=== PATIENT | male | born 1965 | race Caucasian/White ===

== ENCOUNTER 2018-08-01 08:58 | Outpatient (CLI) | payer OTHER ==
[2018-08-01 09:21] LABS: BASOPHILS # (AUTO) 0.1 10^3/uL (0.0-0.1); BASOPHILS % (AUTO) 0.9 %; EOSINOPHILS # (AUTO) 0.1 10^3/uL (0.0-0.7); EOSINOPHILS % (AUTO) 2.2 %; HGB - HEMOGLOBIN 16.4 g/dL (14.0-18.0); LYMPHOCYTES # (AUTO) 2.3 10^3/uL (1.5-3.5); MEAN CORPUSCULAR HEMOGLOBIN 29.7 pg (27.0-31.0); MEAN CORPUSCULAR HGB CONC 33.6 g/dL (32.0-36.0); MEAN CORPUSCULAR VOLUME 88.2 fL (80.0-94.0); MEAN PLATELET VOLUME 8.8 fL (7.4-11.4); MONOCYTES # (AUTO) 0.3 10^3/uL (0.0-1.0); MONOCYTES % (AUTO) 5.1 %; NEUTROPHILS # (AUTO) 3.5 10^3/uL (1.5-6.6); NEUTROPHILS % (AUTO) 55.8 %; PLT - PLATELET COUNT 152 10^3/uL (130-450); RED BLOOD COUNT 5.52 10^6/uL (4.70-6.10); RED CELL DISTRIBUTION WIDTH 13.3 % (12.0-15.0); WHITE BLOOD COUNT 6.3 x10^3/uL (4.8-10.8)
[2018-08-01 09:42] LABS: ALBUMIN 4.1 g/dL (3.2-5.5); ALBUMIN/GLOBULIN RATIO 1.1 (1.0-2.2); ALKALINE PHOSPHATASE 60 IU/L (42-121); ALT ALANINE AMINOTRANSFERASE 25 IU/L (10-60); AST ASPARTATE AMINOTRANSFERASE 22 IU/L (10-42); BILIRUBIN,TOTAL 0.6 mg/dL (0.2-1.0); BUN - BLOOD UREA NITROGEN 12 mg/dL (6-20); CALCIUM 8.6 mg/dL (8.5-10.3); CARBON DIOXIDE - CO2 23 mmol/L (21-32); CHLORIDE 105 mmol/L (101-111); CHOL/HDL RATIO 4.8 (<5.0); CHOLESTEROL 145 mg/dL; GFR - MDRD 78 (>89); GLUCOSE 119 mg/dL (70-100); HDL CHOLESTEROL 30 mg/dL; LDL CHOLESTEROL,CALCULATED 97 mg/dL; LDL/HDL RATIO 3.2 (<3.6); SODIUM 138 mmol/L (135-145); TOTAL PROTEIN 7.7 g/dL (6.7-8.2); VLDL CHOLESTEROL 18 mg/dL
== END 2018-08-01 08:59 | disposition home or self-care (01) ==
LOC: LAB 08:58
PROVIDERS: ATTEND Internal Medicine Cardiovascular Disease
DX: I10 Essential (primary) hypertension (principal)
CPT/HCPCS: 36415; 80053; 80061; 83721; 85025

== ENCOUNTER 2018-08-14 10:15 | Outpatient (CLI) | payer OTHER ==
--- NOTE | 2018-08-14 18:02 | MRI Report ---
Reason: KNEE JOINT PAIN,RIGHT Procedure Date: 08/14/2018 Accession Number: [id number] / [id number] Procedure: MRI - Knee RT W/O CPT Code: FULL RESULT: EXAM: RIGHT KNEE MRI WITHOUT CONTRAST EXAM DATE: 08/14/2018 11:47 AM. CLINICAL HISTORY: KNEE JOINT PAIN,RIGHT. COMPARISON: KNEE 3 VIEW RT 08/12/2018 10:30 AM. TECHNIQUE: Multiplanar, multisequence T1-weighted and fluid-sensitive sequences of the knee without contrast. Other: None. FINDINGS: Cruciate ligaments: The posterior cruciate and appears intact. There is thickening and increased intrasubstance signal involving the anterior cruciate ligament. Lobulated cyst formation adjacent to the upper fibers of the anterior and posterior cruciate ligaments. Medial meniscus: There is severe blunting and truncation of the posterior horn of the medial meniscus with a partial-thickness radial tear at the body posterior horn junction. This could relate to previous tear with partial resection of the meniscus. In the absence of surgical history this is consistent with meniscus tear and degeneration. Lateral meniscus: Prominent intrasubstance degeneration at the root of the anterior horn with tiny incomplete vertical tear. Otherwise intact. Collateral ligaments: The medial and fibular collateral ligaments appear intact. Bones and articular surfaces: Small popliteal cyst. Mild cartilage thinning and surface irregularity in the medial greater than patellofemoral compartments. Small tricompartmental marginal osteophytes. Extensor mechanism: The patellar tendon and quadriceps insertion appear intact. IMPRESSION: 1. Severe deficiency at the posterior horn medial meniscus. This could represent previous partial resection of the meniscus. In the absence of surgical history consistent with previous tear and degeneration. 2. Small incomplete radial tear at the body posterior horn junction of the medial meniscus. 3. 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 4. Pronounced mucoid degeneration involving the anterior cruciate ligament. RADIA
== END 2018-08-14 10:16 | disposition home or self-care (01) ==
LOC: DI 10:15
PROVIDERS: ATTEND Orthopaedic Surgery Sports Medicine
DX: S83.241A Other tear of medial meniscus, current injury, right knee, initial encounter (principal); M17.11 Unilateral primary osteoarthritis, right knee; M23.8X1 Other internal derangements of right knee

== ENCOUNTER 2019-02-09 16:22 | Observation (INO) | payer MEDICARE, OTHER ==
--- NOTE | 2019-02-09 16:54 | XRAY Report ---
Reason: CHEST PAIN Procedure Date: 02/09/2019 Accession Number: [id number] / [id number] Procedure: XR - Chest 2 View X-Ray CPT Code: 63803 Final Report FULL RESULT: EXAM: CHEST RADIOGRAPHY EXAM DATE: 02/09/2019 04:44 PM. CLINICAL HISTORY: CHEST PAIN. COMPARISON: None. TECHNIQUE: 2 views. FINDINGS: Lungs/Pleura: No focal opacities evident. No pleural effusion. No pneumothorax. Normal volumes. Mediastinum: Previous median sternotomy noted. Heart size is normal. Trachea is midline. Other: None. IMPRESSION: Negative for an acute cardiopulmonary abnormality. RADIA
--- NOTE | 2019-02-09 17:13 | ED Physician Documentation ---
History of Present Illness - Stated complaint Stated Complaint: CP, BACK PRESSURE - Chief complaint Chief Complaint: Cardiac - Additonal information Additional information: This is a 53-year-old male with a history of coronary artery disease with a CABG x4 done in [facility] in 2010, PCI around 2013, Who presents with chest and back pain. He woke this morning with some left-sided chest discomfort and some mild shortness of breath. He then was working in his car and around 10 AM this change in the wellness car he began having increasing pain and some lightheadedness as well as nausea. The pain radiated somewhat towards his back which is similar to symptoms he had when he got his CABG done in 2010 he was found to have a 90% stenosis of multiple vessels. He took 81 mg of aspirin this morning, but no nitroglycerin. He currently states his discomfort is a 5 out of 10, located over the left side of his chest and radiating somewhat towards his back. It is pressure-like. He had a nuclear stress test about a year ago which reportedly was reassuring. Review of Systems Constitutional: denies: Fever Cardiac: reports: Chest pain / pressure Respiratory: reports: Dyspnea GI: denies: Abdominal Pain, Vomiting : denies: Dysuria Skin: denies: Rash PD PAST MEDICAL HISTORY - Past Medical History Cardiovascular: Coronary artery disease - Past Surgical History Cardiovascular: CABG, Coronary stent - Present Medications Home Medications: Ambulatory Orders Medication Instructions Recorded Confirmed Aspirin [Aspirin EC] 81 mg PO DAILY 02/09/19 02/09/19 Atorvastatin [Lipitor] 40 mg PO QPM 02/09/19 02/09/19 Metoprolol Tartrate 50 mg PO BID 02/09/19 02/09/19 - Allergies Allergies/Adverse Reactions: Allergies Allergy/AdvReac Type Severity Reaction Status Date / Time No Known Drug Allergies Allergy Verified 02/09/19 16:25 - Living Situation Living Situation: reports: With family Living Arrangement: reports: At home PD ED PE NORMAL - Vitals Vital signs reviewed: Yes - General General: Alert and oriented X 3, No acute distress - HEENT HEENT: PERRL - Neck Neck: Supple, no meningeal sign - Cardiac Cardiac: RRR, No murmur - Respiratory Respiratory: Clear bilaterally - Abdomen Abdomen: Normal bowel sounds, Soft, Non tender, Non distended - Derm Derm: Warm and dry - Extremities Extremities: No deformity - Neuro Neuro: Alert and oriented X 3 - Psych Psych: Normal mood, Normal affect Results - Vitals Vitals: Vital Signs - 24 hr 02/09/19 02/09/19 02/09/19 16:25 17:11 17:15 Temperature 37.3 C 37.1 C Heart Rate 74 66 65 Respiratory 18 20 12 Rate Blood Pressure 145/88 H 153/98 H 160/91 H O2 Saturation 97 97 96 02/09/19 02/09/19 02/09/19 17:38 17:40 17:44 Temperature Heart Rate 66 69 76 Respiratory 18 14 10 L Rate Blood Pressure 139/90 H 154/85 H 149/92 H O2 Saturation 100 97 97 02/09/19 02/09/19 02/09/19 17:48 18:21 18:30 Temperature Heart Rate 77 56 L 58 L Respiratory 12 20 9 L Rate Blood Pressure 141/80 H 134/88 H 126/76 O2 Saturation 97 99 97 Oxygen O2 Source Room air - EKG (time done) 16:33 Other comments: Other comments (Rate 66, rhythm sinus, there is no ST segment inversions. There is some T wave flattening in aVL L. Intervals within normal limits.) - Labs Labs: Laboratory Tests 02/09/19 02/09/19 02/09/19 17:20 17:20 17:20 WBC 8.4 RBC 5.25 Hgb 15.9 Hct 46.9 MCV 89.3 MCH 30.3 MCHC 33.9 RDW 12.2 Plt Count 194 MPV 10.5 Neut # (Auto) 5.7 Lymph # (Auto) 2.0 Ada # (Auto) 0.5 Eos # (Auto) 0.1 Baso # (Auto) 0.1 Absolute Nucleated RBC 0.00 Nucleated RBC % 0.0 Sodium 138 Potassium 3.8 Chloride 101 Carbon Dioxide 27 Anion Gap 10.0 BUN 7 Creatinine 1.0 Estimated GFR (MDRD) 78 L Glucose 118 H Calcium 10.1 Total Bilirubin 0.4 AST 25 ALT 33 Alkaline Phosphatase 51 Troponin I High Sens 2.8 Total Protein 7.9 Albumin 4.3 Globulin 3.6 Albumin/Globulin Ratio 1.2 Lipase 42 - Rads (name of study) CXR Radiology: Other (No acute cardiopulmonary abnormality) PD MEDICAL DECISION MAKING - ED course Complexity details: considered differential (ACS, angina, dysrhythmia, pneumothorax, pleural effusion, pneumonia) ED course: On evaluation patient is well-appearing, EKG shows no acute disease signs of ischemia or dysrhythmia, chest x-ray is unremarkable. Labs are unrevealing, and his first high-sensitivity troponin is negative. Dissection is unlikely given description of his pain and his blood pressure. He also has no history of pulmonary embolism, and the nature of his pain, his normal oxygen saturation and pulse make this unlikely. I am most concerned for ACS and he is a fairly high risk for major adverse cardiac event given this feels similar to his past SC. I gave him nitroglycerin and he had great improvement, he was also given 325 mg of aspirin. He was admitted to the hospital for further evaluation and ACS rule out. He is in agreement with this plan and is feeling well at the time of admission. Departure - Departure Disposition: ED Place in Observation Clinical Impression: Chest pain Qualifiers: Chest pain type: unspecified Qualified Code(s): R07.9 - Chest pain, unspecified Condition: Good Discharge Date/Time: 02/09/19 19:49
[2019-02-09] MEDS: NITROGLYCERIN SL 0.4 MG TABLET SL STA ×2 (17:40→17:45)
[2019-02-09 17:55] LABS: BASOPHILS # (AUTO) 0.1 10^3/uL (0.0-0.1); BASOPHILS % (AUTO) 0.6 %; EOSINOPHILS # (AUTO) 0.1 10^3/uL (0.0-0.7); EOSINOPHILS % (AUTO) 0.9 %; HGB - HEMOGLOBIN 15.9 g/dL (14.0-18.0); LYMPHOCYTES % (AUTO) 24.1 %; MEAN CORPUSCULAR HEMOGLOBIN 30.3 pg (27.0-31.0); MEAN CORPUSCULAR HGB CONC 33.9 g/dL (32.0-36.0); MEAN CORPUSCULAR VOLUME 89.3 fL (80.0-94.0); MEAN PLATELET VOLUME 10.5 fL (7.4-11.4); MONOCYTES # (AUTO) 0.5 10^3/uL (0.0-1.0); NEUTROPHILS # (AUTO) 5.7 10^3/uL (1.5-6.6); NEUTROPHILS % (AUTO) 68.2 %; PLT - PLATELET COUNT 194 10^3/uL (130-450); RED BLOOD COUNT 5.25 10^6/uL (4.70-6.10); RED CELL DISTRIBUTION WIDTH 12.2 % (12.0-15.0); WHITE BLOOD COUNT 8.4 x10^3/uL (4.8-10.8)
[2019-02-09 18:06] LABS: ALBUMIN 4.3 g/dL (3.2-5.5); ALBUMIN/GLOBULIN RATIO 1.2 (1.0-2.2); BILIRUBIN,TOTAL 0.4 mg/dL (0.2-1.0); CALCIUM 10.1 mg/dL (8.5-10.3); TOTAL PROTEIN 7.9 g/dL (6.7-8.2)
[2019-02-09] MEDS ORDERED: oxyCODONE 5 MG TABLET PO PRN (18:52)
[2019-02-09] MEDS ORDERED: SODIUM CHLORIDE FLUSH 0.9% 10 ML SYRINGE IVP PRN (18:52)
[2019-02-09] MEDS ORDERED: ACETAMINOPHEN 325 MG TABLET PO PRN (18:52)
[2019-02-09] MEDS ORDERED: ONDANSETRON ODT 4 MG TABLET TL PRN (18:52)
[2019-02-09] MEDS ORDERED: ONDANSETRON 4 MG/2 ML VIAL IVP PRN (18:52)
[2019-02-09] MEDS ORDERED: ASPIRIN CHEW 81 MG TABLET PO STA (18:53)
[2019-02-09] MEDS ORDERED: MORPHINE 2 MG/ML CARPUJECT IVP PRN (18:56)
--- NOTE | 2019-02-09 19:25 | HISTORY & PHYSICAL EXAMINATION ---
Chief Complaint - Chief Complaint Chief Complaint: Chest pain History of Present Illness - Admitted From Admitted From:: Home - History Obtained From Records Reviewed: Yes History obtained from: Patient, EMR - History of Present Illness HPI Comment/Other: This is a 53 year old male with a past medical history significant for coronary artery disease s/p CABGx4 in 2010 and PCI in 2013, hypertension, and hyperlipidemia who presents today complaining of chest pain that radiates to his back. He reports the pain began while he was working on his vehicle. The pain is pressure like in nature and radiated to his back. He had associated nausea and flushing. No vomiting. The pain did not radiate to his neck or arms. He felt dizzy and lightheaded when the pain began. He went inside his home to rest but this did not alleviate the pressure. He also complained of dyspnea on exertion which was new. He states the pain was very similar to when he had his CABG in 2010 and PCI in 2013. His pain was relieved in the emergency department after taking Nitroglycerin. He states he had a stress test prior to moving to [facility] 1.5 years ago in preparation for spine surgery. From what he recalls, it was fine. He has not had chest pain since his PCI until today. He does taking Aspirin 81mg daily, Metoprolol 50mg BID, and Lipitor 40mg daily. He did see a hospital cook here at the [facility] but has not had any further cardiac testing. His previous hospital cook was Dr. Suggs in [place], [place]. He reports no cough, dyspnea at rest, abdominal pain, fevers, chills. He does not currently smoke. He is normally quite active and has been able to function greater than 4 MET's without chest pain. In the emergency department, he was found to be afebrile, heart rate in the 70's, hypertensive with systolic in the 140's, not tachypnic and saturating 97% on room air. His labs were unremarkable including a negative troponin. His chest x-ray was also unremarkable. EKG revealed . Given his history of coronary artery disease and presenting symptoms, medicine was consulted for admission to rule out ACS. I did discuss goals of care with the patient and he would like to be a full code. History - Past Medical History Cardiovascular: reports: Coronary artery disease Respiratory: reports: None Neuro: reports: Head injury Endocrine/Autoimmune: reports: None GI: reports: None : reports: None Psych: reports: None Musculoskeletal: reports: Chronic back pain Derm: reports: None MRSA Hx?: No - Past Surgical History Ortho: reports: Spine surgery Cardiovascular: reports: CABG, Coronary stent - Family & Social History Family History Comment/Other: Both his mother and father had CAD. His mother had CABGx3 and father had CABGx4. Living arrangement: At home Living Situation: With family Social History Notes: He previously lived in [place], [place] but moved to [facility] 1.5 years ago to be closer to his father who lives in [place]. He lives with his and son. 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 He smoked cigarettes and chewed tobacco in high school but has not smoked since that time. He drinks alcohol socially. - Substance History Use: Uses substance without health or social issues: NONE - POLST Patient has POLST: No Meds/Allgy - Home Medications Home Medications: Ambulatory Orders Medication Instructions Recorded Confirmed Aspirin [Aspirin EC] 81 mg PO DAILY 02/09/19 02/09/19 Atorvastatin [Lipitor] 40 mg PO QPM 02/09/19 02/09/19 Metoprolol Tartrate 50 mg PO BID 02/09/19 02/09/19 - Allergies Allergies/Adverse Reactions: Allergies Allergy/AdvReac Type Severity Reaction Status Date / Time No Known Drug Allergies Allergy Verified 02/09/19 16:25 Review of Systems - Constitutional Constitutional: denies: Fatigue, Fever, Chills, Weakness - Cardiovascular Cariovascular: reports: Chest pain, Lightheadedness, Exertional dyspnea, Decr. exercise tolerance. denies: Palpitations, Edema - Respiratory Respiratory: reports: SOB with exertion. denies: Cough, SOB at rest - Gastrointestinal Gastrointestinal: reports: Nausea. denies: Abdominal pain, Vomiting - Genitourinary Genitourinary: denies: Dysuria, Frequency, Urgency - Musculoskeletal Musculoskeletal: denies: Muscle weakness - Integumentary Integumentary: denies: Rash - Neurological Neurological: reports: Dizziness. denies: General weakness, Focal weakness, Numbness - All Other Systems All Other Systems: reports: Reviewed and negative Prior Level of Functionality: He is independent with his ADL's. Exam - Vital Signs Reviewed Vital Signs: Yes Vital Signs: Vital Signs x48h Temp Pulse Resp BP Pulse Ox 02/09/19 19:02 63 21 125/77 97 02/09/19 18:58 78 13 125/77 97 02/09/19 18:30 58 L 9 L 126/76 97 02/09/19 18:21 56 L 20 134/88 H 99 02/09/19 17:48 77 12 141/80 H 97 02/09/19 17:44 76 10 L 149/92 H 97 02/09/19 17:40 69 14 154/85 H 97 02/09/19 17:38 66 18 139/90 H 100 02/09/19 17:15 37.1 C 65 12 160/91 H 96 02/09/19 17:11 66 20 153/98 H 97 02/09/19 16:25 37.3 C 74 18 145/88 H 97 - Physical Exam General Appearance: positive: No acute distress, Alert Eyes Bilateral: positive: Normal inspection ENT: positive: ENT inspection nml Neck: positive: Nml inspection Respiratory: positive: No respiratory distress. negative: Wheezes, Rales, Rhonchi Cardiovascular: positive: Regular rate & rhythm, No murmur. negative: Tachycardia, Bradycardia, Systolic murmur, Diastolic murmur Abdomen: positive: Non-tender, No distention. negative: Tenderness, Guarding, Rebound Skin: positive: No rash, Warm, Dry Extremities: positive: Full ROM, No pedal edema Neurologic/Psychiatric: positive: Oriented x3, Motor nml. negative: Disoriented to person, Disoriented to place, Disoriented to time Conclusion/Plan - Problem List (1) Chest pain Conclusion/Plan: His presentation is concerning for ischemia given his history of coronary artery disease. Fortunately, his EKG is not suggestive of ischemia although we do not have a prior EKG to compare to. His initial troponin is negative as well. He received Aspirin in the emergency department. Will trend his troponin and obtain a nuclear stress test in the morning. Will continue his home medications and monitor on telemetry. Nitroglycerin PRN. Qualifiers: Chest pain type: unspecified Qualified Code(s): R07.9 - Chest pain, unspecified (2) Coronary artery disease Conclusion/Plan: He has known coronary artery disease and had a CABGx4 in 2010 followed by PCI in 2013. Both of these procedures were performed in [place]. His previous Search Engine Optimization Analyst was Dr. Suggs in [place], [place] and he now follows with Dr. Montiel here at the [facility]. Will continue his home medications and obtain a nuclear stress test in the morning. Qualifiers: Coronary Disease-Associated Artery/Lesion type: bypass graft Craig vs. transplanted heart: nulato heart (3) Hypertension Conclusion/Plan: His blood pressure is currently well controlled on Metoprolol. Continue home dose. Will add Lisinopril if he becomes hypertensive. Qualifiers: Hypertension type: essential hypertension Qualified Code(s): I10 - Essential (primary) hypertension (4) Hyperlipidemia Conclusion/Plan: Stable. Continue Lipitor. - Lab Results Lab results reviewed: Yes Fish Bones: 02/09/19 17:20 02/10/19 05:43 - Diagnostic Imaging Results Diagnostic Imaging Results: positive: Final report reviewed - EKG Results EKG Interpreted Independently: Yes EKG Comparison: No prior EKG EKG Findings: Sinus rhythm without evidence of ischemia. Core Measures - Anticipated LOS I expect patient to be DC'd or transferred within 96 hours.: Yes - Issues Hospital Issues and Management Plan: Admitted for ACS rule out given his chest pain and history of CAD. Will trend troponin and obtain nuclear stress test in AM. - DVT/VTE - Prophylaxis VTE/DVT Device ordered at admit?: Yes VTE/DVT Prophylaxis med ordered at admit?: Yes
[2019-02-09] MEDS ORDERED: NITROGLYCERIN SL 0.4 MG TABLET SL PRN (19:31)
[2019-02-09] MEDS ORDERED: ATORVASTATIN 40 MG TABLET PO SCH (21:00)
[2019-02-09] MEDS: METOPROLOL TARTRATE 50 MG TABLET PO SCH (21:07)
[2019-02-10] MEDS: SODIUM CHLORIDE FLUSH 0.9% 10 ML SYRINGE IVP SCH ×2 (00:31→10:18)
[2019-02-10 06:00] LABS: CALCIUM 8.8 mg/dL (8.5-10.3)
[2019-02-10] MEDS ORDERED: ASPIRIN CHEW 81 MG TABLET PO SCH (09:00)
[2019-02-10] MEDS: METOPROLOL TARTRATE 50 MG TABLET PO SCH (10:16)
[2019-02-10] MEDS ORDERED: REGADENOSON 0.4 MG/5 ML SYRINGE IVP ONE ×2 (10:42→13:45)
[2019-02-10] MEDS ORDERED: AMINOPHYLLINE 250 MG/10 ML VIAL ONE (10:43)
--- NOTE | 2019-02-10 15:08 | CARDIAC PROCEDURE NOTE ---
DATE OF SERVICE: 02/10/2019 Physician: Daniela Monsalve MD INDICATION: Chest pain. CARDIAC RISK FACTORS: Male gender, hyperlipidemia, hypertension, family history of early heart disease. The patient has known CAD with prior CABG and stents. DESCRIPTION OF PROCEDURE: After signing informed consent, the patient underwent a Lexiscan pharmaceutical stress test with nuclear myocardial perfusion imaging. Resting heart rate: 65. Peak heart rate: 90. Resting blood pressure: 155/88. Peak blood pressure: 172/108. Lexiscan was infused per protocol. The patient had brief flushing and shortness of breath, he had no chest pain or other symptoms. RESTING ELECTROCARDIOGRAM: Normal sinus rhythm, vertical axis, otherwise within normal limits. ELECTROCARDIOGRAM AT PEAK: No new ST segment or T-wave abnormalities. SUMMARY 1. No symptoms occurred with pharmaceutical stress testing. 2. Normal resting electrocardiogram, except for vertical axis. 3. No new ischemic changes per EKG criteria were seen with this pharmaceutical stress. 4. Nuclear images reported separately. cc: MD Rayne Luna MD TD: 02/10/2019 14:41 MTDD
--- NOTE | 2019-02-10 15:27 | Nuclear Medicine Report ---
Reason: Chest pain. History of CAD s/p CABG x4 and PCI. Procedure Date: 02/10/2019 Accession Number: [id number] / [id number] Procedure: NM - Myocardial Perfusion STR/RST CPT Code: Addended Final Report FULL RESULT: EXAM: SINGLE-ISOTOPE PHARMACOLOGICAL STRESS TEST WITH REGADENOSON. SINGLE-ISOTOPE AND TWO-DAY REST/STRESS MYOCARDIAL PERFUSION SCANS WITH TOMOGRAPHIC IMAGING, QUANTITATIVE ANALYSIS, WALL MOTION ANALYSIS AND CALCULATION OF EJECTION FRACTION. EXAM DATE: 02/10/2019 01:48 PM. CLINICAL HISTORY: Chest pain. History of CAD status post coronary artery bypass grafting x4 and percutaneous coronary intervention. COMPARISON: None available. TECHNIQUE: A pharmacological stress was performed with the infusion of 0.4 mg regadenoson per protocol. According to protocol, 9.2 mCi of Tc-99m sestamibi was injected for stress myocardial perfusion scan. Motion correction was applied when appropriate. The following day after the intravenous administration of 40.2 mCi of Tc-99m sestamibi, a rest myocardial perfusion scan was done with tomography. Motion correction was applied when appropriate. Gated tomographic images were obtained for wall motion analysis and computation of left ventricular ejection fraction. FINDINGS: On visual analysis, there are mild fixed defects in the apex and distal anterior wall. No convincing significant reversible perfusion defects. Computer analysis. Summed stress score 6. Summed rest score 3. Summed difference score 3. Wall motion analysis demonstrates septal hypokinesis. The left ventricular end-diastolic volume is 102 cc. The left ventricular end-systolic volume is 33 cc. The left ventricular ejection fraction is calculated to be 67%. IMPRESSION: 1. On visual analysis, mild fixed defects in the apex and distal anterior wall. No convincing reversible perfusion defects. 2. Left ventricular ejection fraction of 67%. 3. Septal hypokinesis. 4. Normal left ventricular cavity size, no change with stress. 5. Based on computer analysis, mildly abnormal study with mild ischemia. Please correlate findings with stress ECG tracings and procedure notes. RADIA ADDENDUM: 02/11/19 09:32 There is a discrepancy between the computer analysis and visual analysis. On visual analysis, the computer detected reversibility in the distal anterior and distal lateral [place] is not appreciated. Findings were discussed by telephone with Dr. Monsalve at 0930 and 02/11/2019.
--- NOTE | 2019-02-10 15:33 | Discharge Plan ---
Discharge Plan Problem Reviewed?: Yes Disposition: Home, Self Care Condition: Stable Prescriptions: Nitroglycerin [Nitrostat] 0.4 mg SL Q5MIN PRN #100 tablet PRN Reason: Chest Pain Diet: Cardiac Activity Restrictions: Activity as Tolerated Shower Restrictions: No Driving Restrictions: No Instruction Topics: Angina, Nitroglycerin Fast Acting Health Concerns: You were here to evaluate chest pain, labs showed no heart attack and a stress test was relatively stable. Plan of Treatment: Resume your pre-hospital medications. A new prescription fo Nitro, to use under the tongue, was ordere for you. See Dr Montiel at the clinic for follow-up soon. Care Goals: Stabilization Assessment: The patient understands. No Smoking: If you smoke, Please STOP! Call for help. Follow-up with: Rayne Wilson MD [Primary Care Provider] -
--- NOTE | 2019-02-10 15:38 | DISCHARGE SUMMARY ---
"Discharge Summary Admit Date: 02/09/19 Discharge Date: 02/10/19 Discharging Provider: Dr Daniela Monsalve Primary Care Provider: Dr Michelle Whyte Condition at Discharge: Stable Discharge Disposition: 01 Home, Self Care - DIAGNOSES Admission Diagnoses: 1) Chest pain 2) Hx of CAD with CABG and coronary stents 3) HTN 4) Hyperlipidemia Hx Discharge Diagnoses with Status of Each Condition: See below - HPI History of Present Illness: From the admission H&P of Dr Aidan Corbin: This is a 53 year old male with a past medical history significant for coronary artery disease s/p CABGx4 in 2010 and PCI in 2013, hypertension, and hyperlipidemia who presents today complaining of chest pain that radiates to his back. He reports the pain began while he was working on his vehicle. The pain is pressure like in nature and radiated to his back. He had associated nausea and flushing. No vomiting. The pain did not radiate to his neck or arms. He felt dizzy and lightheaded when the pain began. He went inside his home to rest but this did not alleviate the pressure. He also complained of dyspnea on exertion which was new. He states the pain was very similar to when he had his CABG in 2010 and PCI in 2013. His pain was relieved in the emergency department after taking Nitroglycerin. He states he had a stress test prior to moving to [facility] 1.5 years ago in preparation for spine surgery. From what he recalls, it was fine. He has not had chest pain since his PCI until today. He does taking Aspirin 81mg daily, Metoprolol 50mg BID, and Lipitor 40mg daily. He did see a sample grinder here at the [facility] but has not had any further cardiac testing. His previous sample grinder was Dr. Suggs in [place], [place]. He reports no cough, dyspnea at rest, abdominal pain, fevers, chills. He does not currently smoke. He is normally quite active and has been able to function greater than 4 MET's without chest pain. In the emergency department, he was found to be afebrile, heart rate in the 70's, hypertensive with systolic in the 140's, not tachypnic and saturating 97% on room air. His labs were unremarkable including a negative troponin. His chest x-ray was also unremarkable. EKG revealed . Given his history of coronary artery disease and presenting symptoms, medicine was consulted for admission to rule out ACS. - CONSULTS | PROCEDURES Procedures: Lexiscan pharmaceutical stress test with nuclear myocardial perfusion imaging - HOSPITAL COURSE Hospital Course: 1) Chest pain There were no more episodes of chest pain while here. His hs-troponins were 2.8, 2.6 and < 2.3, ruling him out for an NJ. He underwent a pharmaceutical stress test the following morning (he requested not to walk on a treadmill because of arthritis). He had no CP with Lexiscan infusion and the EKG developed no ischemic changes. The nuclear scan portions were read as having septal hypokinesis and spotty fixed abnormalities of the divina-septum, but no rever sible changes to suggest ischemia. When asked if he had had an NJ in his past, he said he did not know. We had no cardiac records from [place] to review. The patient was educated about using sl NTG for angina and a fresh prescription was ordered. He was advised to establish with a sample grinder locally. 2) Hx of CAD with CABG and coronary stents He was kept on his statin, Aspirin and Metoprolol while here. 3) HTN BP was controlled on current meds. 4) Hyperlipidemia Hx He was kept on his present statin dose. - ALLERGIES Allergies/Adverse Reactions: Allergies Allergy/AdvReac Type Severity Reaction Status Date / Time No Known Drug Allergies Allergy Verified 02/09/19 16:25 - MEDICATIONS Home Medications: Ambulatory Orders Medication Instructions Recorded Confirmed Aspirin [Aspirin EC] 81 mg PO DAILY 02/09/19 02/09/19 Atorvastatin [Lipitor] 40 mg PO QPM 02/09/19 02/09/19 Metoprolol Tartrate 50 mg PO BID 02/09/19 02/09/19 Nitroglycerin [Nitrostat] 0.4 mg SL Q5MIN PRN #100 tablet 02/10/19 - PHYSICAL EXAM AT DISCHARGE General Appearance: positive: No acute distress, Alert Eyes Bilateral: positive: Normal inspection ENT: positive: ENT inspection nml Neck: positive: Nml inspection Respiratory: positive: No respiratory distress Cardiovascular: positive: Regular rate & rhythm Abdomen: positive: Non-tender, No distention Skin: positive: Color nml Extremities: positive: No pedal edema Neurologic/Psychiatric: positive: Oriented x3, Other (Non-focal) - LABS Result Diagrams: 02/09/19 17:20 02/10/19 05:43 - DIAGNOSTIC IMAGING Diagnostic Imaging Results: Final report reviewed, Discussed with radiologist - FOLLOW UP Follow Up: See PCP and Photocopying Equipment Mechanic for hospital follow-up - TIME SPENT Time Spent in Discharge (Minutes): 35"
[2019-02-10 16:28] VITALS: BP 147/89
== END 2019-02-10 16:25 | disposition home or self-care (01) ==
LOC: ED 16:22 → MS2 18:53
PROVIDERS: ADMIT Specialist; ATTEND Internal Medicine
DX: I25.709 Atherosclerosis of coronary artery bypass graft(s), unspecified, with unspecified angina pectoris (principal); I10 Essential (primary) hypertension; E78.5 Hyperlipidemia, unspecified; G89.29 Other chronic pain; M54.9 Dorsalgia, unspecified; Z79.82 Long term (current) use of aspirin; Z95.1 Presence of aortocoronary bypass graft; Z95.5 Presence of coronary angioplasty implant and graft; Z82.49 Family history of ischemic heart disease and other diseases of the circulatory system; Z87.891 Personal history of nicotine dependence
CPT/HCPCS: 36415; 71046; 78452; 80048; 80053; 83690; 84484; 85025; 93005; 93017; 96374; 99284; 99285; A9270; A9500; G0378; J2785

== ENCOUNTER 2019-03-17 07:06 | Day surgery (SDC) | payer MEDICARE ==
[~2019-03-17 07:06] MED LIST: SODIUM/POTASSIUM/MAG SULFATES 354 ML PREP KIT PO SCH
[2019-03-17] MEDS ORDERED: LACTATED RINGERS 1,000 ML IV ONE (07:12)
[2019-03-17] MEDS ORDERED: fentaNYL 250 MCG/5 ML VIAL IVP ONE (08:23)
[2019-03-17] MEDS ORDERED: MIDAZOLAM 2 MG/2 ML VIAL IVP ONE (08:23)
[2019-03-17] MEDS ORDERED: GLUCAGON 1 MG/ML VIAL ONE (09:13)
[2019-03-17 09:18] VITALS: BP 133/98
== END 2019-03-17 07:07 | disposition home or self-care (01) ==
LOC: SDS 07:06
PROVIDERS: ATTEND Surgery
PROC: 0DBN8ZZ Excision of Sigmoid Colon, Via Natural or Artificial Opening Endoscopic (ICD-10-PCS; principal; 2019-03-17 08:30)
DX: K63.5 Polyp of colon (principal); K62.5 Hemorrhage of anus and rectum; K59.09 Other constipation; K21.9 Gastro-esophageal reflux disease without esophagitis; I10 Essential (primary) hypertension; I25.10 Atherosclerotic heart disease of native coronary artery without angina pectoris; F32.9 Major depressive disorder, single episode, unspecified; F41.9 Anxiety disorder, unspecified; Z95.1 Presence of aortocoronary bypass graft; Z79.82 Long term (current) use of aspirin; Z79.1 Long term (current) use of non-steroidal anti-inflammatories (NSAID); Z95.5 Presence of coronary angioplasty implant and graft; Z98.1 Arthrodesis status
CPT/HCPCS: 45380; A9270; J3010; J7120

== ENCOUNTER 2022-02-23 02:30 | Emergency (ER) | payer MEDICARE ==
[2022-02-23] MEDS ORDERED: SODIUM CHLORIDE 0.9% 1,000 ML IV STA (02:47)
[2022-02-23] MEDS ORDERED: KETOROLAC 15 MG/ML VIAL IVP STA (02:47)
--- NOTE | 2022-02-23 02:49 | ED Physician Documentation ---
History of Present Illness - Stated complaint Stated Complaint: BLEEDING FROM PENIS - Chief complaint Chief Complaint: Abd Pain - History obtained from History obtained from: Patient, Family () - Additonal information Additional information: 56yM with pmh hld, cad s/p coronary bypass p/w LLQ pain intermittent over past few days, sharp, currently /, nonradiating a/w occasional dysuria. tonight he urinated in the bathroom then left the bathroom, felt like he was peeing again and then looked at his underwear and saw blood. no prior hx uti or stones. denies fevers. denies abdominal surgeries. Review of Systems Ten Systems: 10 systems reviewed and negative Constitutional: denies: Fever Cardiac: denies: Chest pain / pressure Respiratory: denies: Dyspnea, Cough GI: reports: Abdominal Pain. denies: Nausea, Diarrhea : reports: Dysuria, Hematuria Musculoskeletal: denies: Back pain PD PAST MEDICAL HISTORY - Past Medical History Cardiovascular: Hypertension, High cholesterol, Coronary artery disease, Other Respiratory: None Neuro: Head injury Endocrine/Autoimmune: None GI: None : None HEENT: None Psych: Anxiety Musculoskeletal: Chronic back pain Derm: None - Past Surgical History Past Surgical History: Yes General: Colonoscopy Ortho: Spine surgery, Other Cardiovascular: CABG, Coronary stent - Present Medications Home Medications: Ambulatory Orders Medication Instructions Recorded Confirmed Aspirin [Aspirin EC] 81 mg PO DAILY 02/09/19 02/23/22 Atorvastatin [Lipitor] 40 mg PO QPM 02/09/19 02/23/22 Nitroglycerin [Nitrostat] 0.4 mg SL Q5MIN PRN #100 tablet 02/10/19 02/23/22 Carvedilol [Coreg] 6.25 mg PO BID 03/17/19 02/23/22 - Allergies Allergies/Adverse Reactions: Allergies Allergy/AdvReac Type Severity Reaction Status Date / Time No Known Drug Allergies Allergy Verified 02/09/19 16:25 - Social History Does the pt smoke?: No Smoking Status: Never smoker Does the pt drink ETOH?: Yes Does the pt have substance abuse?: Yes - Immunizations Immunizations are current?: Yes - POLST Patient has POLST: No PD ED PE NORMAL - Vitals Vital signs reviewed: Yes - General General: Alert and oriented X 3, No acute distress, Well developed/nourished - HEENT HEENT: Atraumatic, PERRL, EOMI - Neck Neck: Supple, no meningeal sign - Cardiac Cardiac: RRR - Respiratory Respiratory: No respiratory distress, Clear bilaterally - Abdomen Abdomen: Other (LLQ discomfort to palpation. otherwise ntnd) - Back Back: No CVA TTP - Derm Derm: Normal color - Extremities Extremities: No deformity Results - Vitals Vitals: Vital Signs - 24 hr 02/23/22 02/23/22 02:40 03:16 Temperature 37 C Heart Rate 78 63 Respiratory 16 18 Rate Blood Pressure 139/94 H 138/86 H O2 Saturation 99 98 Oxygen O2 Source Room air - Labs Labs: Laboratory Tests 02/23/22 02/23/22 02/23/22 02:50 02:50 02:50 WBC 9.6 RBC 5.22 Hgb 15.7 Hct 46.9 MCV 89.8 MCH 30.1 MCHC 33.5 RDW 12.2 Plt Count 196 MPV 9.8 Neut # (Auto) 6.1 Lymph # (Auto) 2.5 [place] # (Auto) 0.7 Eos # (Auto) 0.2 Baso # (Auto) 0.1 Absolute Nucleated RBC 0.00 Nucleated RBC % 0.0 Sodium 137 Potassium 4.1 Chloride 101 Carbon Dioxide 26 Anion Gap 10.0 BUN 10 Creatinine 1.0 Estimated GFR (MDRD) 77 L Glucose 113 H Calcium 9.4 Total Bilirubin 0.5 AST 21 ALT 22 Alkaline Phosphatase 53 Total Protein 7.5 Albumin 4.2 Globulin 3.3 Albumin/Globulin Ratio 1.3 Lipase 51 Urine Color YELLOW Urine Clarity CLEAR Urine pH 6.0 Ur Specific [place] <=1.005 Urine Protein NEGATIVE Urine Glucose (UA) NEGATIVE Urine Ketones NEGATIVE Urine Occult Blood TRACE-INTA Urine Nitrite NEGATIVE Urine Bilirubin NEGATIVE Urine Urobilinogen 0.2 (NORMAL) Ur Leukocyte Esterase NEGATIVE Ur Microscopic Review NOT INDICATED Urine Culture Comments NOT INDICATED PD MEDICAL DECISION MAKING - ED course ED course: 56yM p/w LLQ pain, dysuria, hematuria. will obtain ua, labs, ct, treat symptomatically and reevalute. Departure - Departure Disposition: 01 Home, Self Care Clinical Impression: Hematuria Condition: Good Instructions: ED Hematuria Follow-Up: Holly Jacob MD [Physician No Access] - Comments: You were seen in the ED for blood in the urine. Your labwork and CT uncovered no emergent cause for your symptoms but you will need further workup with a urologist. Please follow up with your primary care provider for referral and return to the ED for any new or worsening symptoms or other cocnerns.
[2022-02-23] MEDS ORDERED: iohexoL-300 100 ML VIAL ONE (02:55)
[2022-02-23 02:58] LABS: BASOPHILS # (AUTO) 0.1 10^3/uL (0.0-0.1); BASOPHILS % (AUTO) 0.8 %; EOSINOPHILS # (AUTO) 0.2 10^3/uL (0.0-0.7); HCT - HEMATOCRIT 46.9 % (42.0-52.0); HGB - HEMOGLOBIN 15.7 g/dL (14.0-18.0); LYMPHOCYTES # (AUTO) 2.5 10^3/uL (1.5-3.5); LYMPHOCYTES % (AUTO) 25.6 %; MEAN CORPUSCULAR HEMOGLOBIN 30.1 pg (27.0-31.0); MEAN CORPUSCULAR HGB CONC 33.5 g/dL (32.0-36.0); MEAN CORPUSCULAR VOLUME 89.8 fL (80.0-94.0); MEAN PLATELET VOLUME 9.8 fL (7.4-11.4); MONOCYTES # (AUTO) 0.7 10^3/uL (0.0-1.0); MONOCYTES % (AUTO) 7.7 %; NEUTROPHILS # (AUTO) 6.1 10^3/uL (1.5-6.6); NEUTROPHILS % (AUTO) 63.8 %; PLT - PLATELET COUNT 196 10^3/uL (130-450); RED BLOOD COUNT 5.22 10^6/uL (4.70-6.10); RED CELL DISTRIBUTION WIDTH 12.2 % (12.0-15.0); WHITE BLOOD COUNT 9.6 x10^3/uL (4.8-10.8)
[2022-02-23 03:03] LABS: BILIRUBIN,URINE NEGATIVE (NEGATIVE); CLARITY,URINE CLEAR (CLEAR); GLUCOSE, URINE (UA) NEGATIVE (NEGATIVE); KETONES,URINE (UA) NEGATIVE (NEGATIVE); LEUKOCYTE ESTERASE, URINE NEGATIVE (NEGATIVE); NITRITE,URINE NEGATIVE (NEGATIVE); OCCULT BLOOD,URINE TRACE-INTA (NEGATIVE); PROTEIN,URINE NEGATIVE (NEGATIVE); UROBILINOGEN,URINE 0.2 (NORMAL) E.U./dL (NORMAL)
[2022-02-23 03:13] LABS: ALBUMIN 4.2 g/dL (3.2-5.5); ALBUMIN/GLOBULIN RATIO 1.3 (1.0-2.2); BILIRUBIN,TOTAL 0.5 mg/dL (0.2-1.0); CALCIUM 9.4 mg/dL (8.5-10.3); POTASSIUM 4.1 mmol/L (3.5-5.0); TOTAL PROTEIN 7.5 g/dL (6.7-8.2)
[2022-02-23] MEDS ORDERED: iohexoL-300 100 ML VIAL IVP ONE (03:47)
[2022-02-23 05:24] VITALS: BP 133/61
--- NOTE | 2022-02-23 08:33 | CT Report ---
PROCEDURE: ABDOMEN/PELVIS W INDICATIONS: Abdominal pain, acute, nonlocalized CONTRAST: Omni 300 100ml TECHNIQUE: After the administration of intravenous contrast, 5 mm thick sections acquired from the diaphragms to the symphysis. 5 mm thick coronal and sagittal reformats were acquired. For radiation dose reducti on, the following was used: automated exposure control, adjustment of mA and/or kV according to alex ent size. COMPARISON: None. FINDINGS: Image quality: Excellent. ABDOMEN: Lung bases: Lung bases are clear. Heart size is normal. Small hiatal hernia. Mild concentric thick ening at the gastroesophageal junction. Solid organs: Liver and spleen are normal in size and enhancement. Mild hepatic steatosis. Gallbladd er is normal and contracted. Biliary system is non dilated. Pancreas enhances normally. No adrenal nodules. Kidneys demonstrate normal size and enhancement, without hydronephrosis. Peritoneum and bowel: Bowel loops demonstrate normal wall thickness and caliber. Diverticulosis wit hout diverticulitis. No free fluid or air. Nodes and vessels: No retroperitoneal or mesenteric adenopathy by size criteria. Aorta and inferior vena cava are normal in size. Moderate atherosclerotic calcifications. Miscellaneous: Tiny fat-containing umbilical hernia. PELVIS: Genitourinary: Bladder wall thickness is normal. Miscellaneous: No inguinal hernias or adenopathy. There is a 4.3 x 3.2 x 3.5 cm lipoma in the left anterior thigh. Bones: No suspicious bony lesions. No vertebral body compression fractures. Degenerative and posts urgical changes in lower lumbar spine. There is moderate to severe central canal stenosis at L3-L4. IMPRESSION: 1. No acute abnormality in abdomen pelvis. 2. Diverticulosis without diverticulitis. 3. A 4.3 x 3.2 x 3.5 cm lipoma in the left anterior thigh. No significant discrepancy with the preliminary interpretation. Reviewed by: Kobi Miles MD on 02/23/2022 8:31 AM PST Approved by: Kobi Miles MD on 02/23/2022 8:31 AM PST Station ID: [id number]
== END 2022-02-23 05:23 | disposition home or self-care (01) ==
LOC: ED 02:30
DX: R31.9 Hematuria, unspecified (principal)
CPT/HCPCS: 36415; 74177; 80053; 81003; 83690; 85025; 96361; 96374; 99282; 99284; Q9967; 81001; 87086

== ENCOUNTER 2022-04-09 09:20 | Outpatient (CLI) | payer MEDICARE | END 2022-04-09 09:21 | disposition home or self-care (01) | LOC: LAB 09:20 | PROVIDERS: ATTEND Physician Assistant Medical | DX: R31.0 Gross hematuria (principal) | CPT/HCPCS: 36415; 82565; 84520 ==

== ENCOUNTER 2022-04-26 08:47 | Outpatient (CLI) | payer MEDICARE ==
[2022-04-26] MEDS ORDERED: iohexoL-300 100 ML VIAL ONE (09:10)
[2022-04-26] MEDS ORDERED: iohexoL-300 100 ML VIAL IVP ONE (09:27)
--- NOTE | 2022-04-26 17:15 | CT Report ---
PROCEDURE: IVP INDICATIONS: GROSS HEMATURIA CONTRAST: 140ml Omnipaque 300 TECHNIQUE: After the administration of intravenous contrast, 5 mm thick sections acquired from the diaphragms to the symphysis. 5 mm thick coronal and sagittal reformats were acquired. For radiation dose reducti on, the following was used: automated exposure control, adjustment of mA and/or kV according to alex ent size. COMPARISON: 02/23/2022. FINDINGS: Image quality: Excellent. Lung bases: Lung bases are clear. Heart size is normal. Urinary system: Both kidneys are normal in size, without hydronephrosis or nephrolithiasis on pre-contrast images. No perinephric fat stranding. There is normal bilateral renal enhancement. Renal calyces appear normal in morphology when filled with contrast. Opacified portions of both ureters demonstrate normal caliber. Bladder wall thickness is normal. No calcified bladder stones. Other solid organs: Liver is normal in size and enhancement. Gallbladder is decompressed but otherwise unremarkable. Biliary system is non dilated. Pancreas enhances normally. Spleen is normal in size and enhancement. No adrenal nodules. Peritoneum and bowel: Bowel loops demonstrate normal wall thickness and caliber. Scattered colonic d iverticulosis without acute diverticulitis. Normal appendix. No free fluid or air. Nodes and vessels: No retroperitoneal or mesenteric adenopathy by size criteria. Aorta and inferior vena cava are normal in size. Atherosclerotic calcifications are noted in the abdo sakshi aorta and iliac vessels. Abdominal wall: Very small fat-containing umbilical hernia without acute inflammation. Pelvis: No pathologic free pelvic fluid. Very small fat-containing right inguinal hernia without acute inflammation. No pelvic adenopathy. Redemonstration of proximal anterior left upper leg lipoma. Bones: No suspicious bony lesions. No acute vertebral body compression fractures. Stable postsurgical changes of lower lumbar spinal f usion of L3-L5. IMPRESSION: 1. CT abdomen and pelvis without acute abnormalities to explain patient's hematuria. No evidence for urolithiasis or obstructive uropathy. No suspicious urothelial abnormalities identified in the upper or lower urinary collecting system. 2. Colonic diverticulosis without acute diverticulitis. 3. Atherosclerotic vascular disease. Other chronic findings as above. Reviewed by: Juan Soto MD on 04/26/2022 5:14 PM PST Approved by: Juan Soto MD on 04/26/2022 5:14 PM PST Station ID: [id number]
== END 2022-04-26 08:48 | disposition home or self-care (01) ==
LOC: DI 08:47
PROVIDERS: ATTEND Physician Assistant Medical
DX: R31.0 Gross hematuria (principal); K57.30 Diverticulosis of large intestine without perforation or abscess without bleeding; I70.0 Atherosclerosis of aorta
CPT/HCPCS: 74178; Q9967

== ENCOUNTER 2022-05-15 16:25 | Outpatient (CLI) | payer MEDICARE ==
--- NOTE | 2022-05-15 17:37 | XRAY Report ---
PROCEDURE: Knee 3 View RT INDICATIONS: PAIN IN R KNEE TECHNIQUE: 3 views of the right knee(s) were acquired. COMPARISON: 08/12/2018 FINDINGS: Bones: Slight interval progression of degenerative change, with interval increase in medial joint sp adeel loss, moderate to severe. Small tricompartment osteophytes. Soft tissues: Small joint effusion. No suspicious soft tissue calcifications. IMPRESSION: Interval progression of degenerative change with interval increase in medial compartment joint space loss, moderate to severe. Reviewed by: Michael Alonso MD on 05/15/2022 5:36 PM PST Approved by: Michael Alonso MD on 05/15/2022 5:36 PM PST Station ID: [id number]
--- NOTE | 2022-05-15 17:38 | XRAY Report ---
PROCEDURE: Hip w/Pelvis 2-3V RT INDICATIONS: HIP PAIN TECHNIQUE: AP pelvis with lateral view(s) of the right hip(s). COMPARISON: None. FINDINGS: Bones: No fractures or dislocations. Pelvic ring appears intact. No suspicious bony lesions. Mode rate degenerative change with joint space loss and an osteophyte off the superior lateral acetabulum as well as off the femoral head. Soft tissues: The visualized bowel gas pattern is normal. No suspicious soft tissue calcifications. IMPRESSION: Moderate degenerative arthritis of the right hip. Reviewed by: Michael Alonso MD on 05/15/2022 5:37 PM PST Approved by: Michael Alonso MD on 05/15/2022 5:37 PM PST Station ID: [id number]
--- NOTE | 2022-05-15 17:42 | XRAY Report ---
PROCEDURE: Lumbar Spine 2 View INDICATIONS: LOW BACK PAIN TECHNIQUE: 2 views of the lumbar spine were acquired. COMPARISON: CT IVP dated 04/26/2022 FINDINGS: Bones: There are apparently 6 nonrib-bearing lumbar vertebral bodies. The most superior vertebral jerri dy that is nonrib-bearing bony referred to as T12. Using this numbering system, there has been remote posterior lateral amanda and pedicle screw fixation and interbody fusion at L4-L5. There is also been i nterbody fusion at L3-L4. There is no evidence of hardware failure or loosening. Expected appearance of orthopedic hardware. There is normal bony alignment. No vertebral body compression fractures. No suspicious bony lesions. On the CT IVP, there is evidence of canal stenosis at L3-L4. Soft tissues: Overlying bowel gas pattern is normal. No suspicious soft tissue calcifications. IMPRESSION: 1. Expected appearance of orthopedic surgical hardware. 2. Please refer to the numbering system above. Surgery is planned on this patient, correlation for co rrect surgical level is required. 3. At L3-L4, the level of interbody fusion, there is canal stenosis. Reviewed by: Michael Alonso MD on 05/15/2022 5:41 PM PST Approved by: Michael Alonso MD on 05/15/2022 5:41 PM PST Station ID: [id number]
== END 2022-05-15 16:26 | disposition home or self-care (01) ==
LOC: DI 16:25
PROVIDERS: ATTEND Internal Medicine
DX: M16.11 Unilateral primary osteoarthritis, right hip (principal); M54.50 Low back pain, unspecified; M48.061 Spinal stenosis, lumbar region without neurogenic claudication; M17.11 Unilateral primary osteoarthritis, right knee

== ENCOUNTER 2022-06-05 15:22 | Outpatient (CLI) | payer MEDICARE ==
--- NOTE | 2022-06-05 16:12 | XRAY Report ---
PROCEDURE: Knee 2 View RT INDICATIONS: RIGHT KNEE PAIN TECHNIQUE: 2 views of the right knee(s) were acquired. COMPARISON: None. FINDINGS: Bones: No fractures or dislocations. No suspicious bony lesions. Moderate osteoarthritic degenerati ve changes in the medial compartment of the right knee with joint space narrowing and osseous hypertr ophy. Soft tissues: No joint effusion. No suspicious soft tissue calcifications. IMPRESSION: Moderate right knee medial compartment osteoarthritis. Reviewed by: Lolly Hernandez MD, PhD on 06/05/2022 4:11 PM PDT Approved by: Lolly Hernandez MD, PhD on 06/05/2022 4:11 PM PDT Station ID: [id number]
== END 2022-06-05 15:25 | disposition home or self-care (01) ==
LOC: DI.WOS 15:22
PROVIDERS: ATTEND Physician Assistant Surgical
DX: M17.11 Unilateral primary osteoarthritis, right knee (principal)

== ENCOUNTER 2023-07-12 12:58 | Day surgery (SDC) | payer MEDICARE ==
[2023-07-12 13:31] LABS: BILIRUBIN,URINE NEGATIVE (NEGATIVE); CLARITY,URINE CLEAR (CLEAR); GLUCOSE, URINE (UA) NEGATIVE (NEGATIVE); KETONES,URINE (UA) NEGATIVE (NEGATIVE); LEUKOCYTE ESTERASE, URINE NEGATIVE (NEGATIVE); NITRITE,URINE NEGATIVE (NEGATIVE); OCCULT BLOOD,URINE TRACE-INTA (NEGATIVE); PROTEIN,URINE NEGATIVE (NEGATIVE); UROBILINOGEN,URINE 0.2 (NORMAL) E.U./dL (NORMAL)
[2023-07-12] MEDS: SODIUM CHLORIDE 0.9% 1,000 ML IV STA (13:37)
[2023-07-12 13:43] LABS: BASOPHILS # (AUTO) 0.1 10^3/uL (0.0-0.1); BASOPHILS % (AUTO) 0.6 %; EOSINOPHILS # (AUTO) 0.2 10^3/uL (0.0-0.7); EOSINOPHILS % (AUTO) 1.5 %; HCT - HEMATOCRIT 44.4 % (42.0-52.0); HGB - HEMOGLOBIN 14.7 g/dL (14.0-18.0); LYMPHOCYTES % (AUTO) 19.4 %; MEAN CORPUSCULAR HEMOGLOBIN 30.8 pg (27.0-31.0); MEAN CORPUSCULAR HGB CONC 33.1 g/dL (32.0-36.0); MEAN CORPUSCULAR VOLUME 93.1 fL (80.0-94.0); MEAN PLATELET VOLUME 10.3 fL (7.4-11.4); MONOCYTES # (AUTO) 0.6 10^3/uL (0.0-1.0); MONOCYTES % (AUTO) 5.9 %; NEUTROPHILS # (AUTO) 7.4 10^3/uL (1.5-6.6); NEUTROPHILS % (AUTO) 72.3 %; PLT - PLATELET COUNT 152 10^3/uL (130-450); RED BLOOD COUNT 4.77 10^6/uL (4.70-6.10); RED CELL DISTRIBUTION WIDTH 12.3 % (12.0-15.0); WHITE BLOOD COUNT 10.2 x10^3/uL (4.8-10.8)
--- NOTE | 2023-07-12 13:48 | ED Physician Documentation ---
PD HPI ABD PAIN - Stated complaint Stated Complaint: ABD PX - Chief complaint Chief Complaint: Abd Pain - History obtained from History obtained from: Patient - History of Present Illness Timing - onset: Today, Yesterday Timing - duration: Days (2) Timing - details: Gradual onset Pain level max: 5 Pain level now: 4 Quality: Aching Location: RUQ, RLQ Associated symptoms: No: Fever, Nausea, Vomiting, Hematemesis, Diarrhea, Cons tipation, Melena, Hematochezia, Dysuria, Hematuria - Additional information Additional information: Patient is a 57-year-old male who presents to the emergency room with right lower quadrant abdominal pain that started yesterday and has worsened today. States it is painful to go for bumps in the car. Decreased appetite today. He states he did eat a cookie at approximately 9 AM. No fevers. No chills. No cough or congestion. States he has never had any abdominal surgeries but that they did do an anterior disc fusion on his lumbar spine. That surgery was in 2017. No diarrhea or constipation. No urinary symptoms. Worse with movement and palpation, better with rest. Review of Systems Constitutional: denies: Fever, Chills GI: denies: Vomiting, Diarrhea, Hematemesis, Bloody / black stool : denies: Dysuria Skin: denies: Rash Musculoskeletal: denies: Neck pain, Back pain Neurologic: denies: Focal weakness, Numbness, Headache PD PAST MEDICAL HISTORY - Past Medical History Past Medical History: Yes Cardiovascular: Hypertension, High cholesterol, Coronary artery disease, Other Respiratory: None Neuro: Head injury Endocrine/Autoimmune: None GI: None : None HEENT: None Psych: Anxiety Musculoskeletal: Chronic back pain Derm: None - Past Surgical History Past Surgical History: Yes General: Colonoscopy Ortho: Spine surgery, Other Cardiovascular: CABG, Coronary stent - Present Medications Home Medications: Ambulatory Orders Medication Instructions Recorded Confirmed Aspirin [Aspirin EC] 81 mg PO DAILY 02/09/19 07/12/23 Atorvastatin [Lipitor] 40 mg PO QPM 02/09/19 07/12/23 Nitroglycerin [Nitrostat] 0.4 mg SL Q5MIN PRN #100 tablet 02/10/19 07/12/23 carvediloL [Coreg] 6.25 mg PO BID 03/17/19 07/12/23 Acetaminophen [Tylenol] 1,000 mg PO Q8HR #30 tablet 07/12/23 Ibuprofen [Motrin] 1 tablet PO Q8H PRN #30 tablet 07/12/23 Lisinopril [Zestril] 20 mg PO DAILY 07/12/23 07/12/23 oxyCODONE [Roxicodone] 5 mg PO Q4-6H PRN #5 tablet 07/12/23 - Allergies Allergies/Adverse Reactions: Allergies Allergy/AdvReac Type Severity Reaction Status Date / Time No Known Drug Allergies Allergy Verified 07/12/23 13:19 - Social History Does the pt smoke?: No Smoking Status: Never smoker Does the pt drink ETOH?: Yes Does the pt have substance abuse?: Yes - Immunizations Immunizations are current?: Yes - POLST Patient has POLST: No PD ED PE NORMAL - Vitals Vital signs reviewed: Yes - General General: Alert and oriented X 3, No acute distress - HEENT HEENT: PERRL, Moist mucous membranes - Neck Neck: Supple, no meningeal sign - Cardiac Cardiac: RRR, Strong equal pulses - Respiratory Respiratory: No respiratory distress, Clear bilaterally - Abdomen Abdomen: Soft, Non distended, Other (Tender palpation right lower quadrant and McBurney's point. Positive psoas and Rovsing signs. Positive obturator) - Back Back: No CVA TTP, No spinal TTP - Derm Derm: Warm and dry - Extremities Extremities: No edema, No calf tenderness / cord - Neuro Neuro: Alert and oriented X 3 - Psych Psych: Normal mood, Normal affect Results - Vitals Vitals: Vital Signs - 24 hr 07/12/23 07/12/23 07/12/23 13:15 13:19 15:19 Temperature 36.9 C 36.9 C 36.5 C Heart Rate 64 64 62 Respiratory 15 15 16 Rate Blood Pressure 107/56 L 107/56 L 110/60 O2 Saturation 97 97 98 07/12/23 07/12/23 07/12/23 17:48 17:54 18:00 Temperature 36.8 C Heart Rate 98 90 85 Respiratory 16 17 16 Rate Blood Pressure 157/82 H 131/75 H 131/75 H O2 Saturation 100 100 96 07/12/23 07/12/23 07/12/23 18:04 18:10 18:15 Temperature Heart Rate 72 80 76 Respiratory 16 13 11 L Rate Blood Pressure 126/76 123/75 131/74 H O2 Saturation 93 97 97 07/12/23 07/12/23 07/12/23 18:39 18:54 19:09 Temperature 36.4 C L Heart Rate 72 59 L 63 Respiratory 18 16 18 Rate Blood Pressure 135/72 H 152/90 H 139/85 H O2 Saturation 95 95 92 07/12/23 07/12/23 07/12/23 19:24 19:54 20:24 Temperature 36.5 C Heart Rate 63 66 83 Respiratory 16 16 16 Rate Blood Pressure 130/81 H 123/72 144/90 H O2 Saturation 92 93 97 07/12/23 21:39 Temperature 36.7 C Heart Rate 63 Respiratory 18 Rate Blood Pressure 124/70 O2 Saturation 96 Oxygen O2 Source Room air - EKG (time done) 1552 EKG releavant findings:: EKG personally interpreted by author of this note. Relevant findings are: Rate: Rate (enter#) (53) Rhythm: NSR [place]: Normal Intervals: Normal NC QRS: Normal Ischemia: Normal ST segments - Labs Labs: Laboratory Tests 07/12/23 07/12/23 07/12/23 13:24 13:32 13:32 WBC 10.2 RBC 4.77 Hgb 14.7 Hct 44.4 MCV 93.1 MCH 30.8 MCHC 33.1 RDW 12.3 Plt Count 152 MPV 10.3 Neut # (Auto) 7.4 H Lymph # (Auto) 2.0 [place] # (Auto) 0.6 Eos # (Auto) 0.2 Baso # (Auto) 0.1 Absolute Nucleated RBC 0.00 Nucleated RBC % 0.0 Sodium 138 Potassium 3.8 Chloride 104 Carbon Dioxide 28 Anion Gap 6.0 BUN 9 Creatinine 1.0 Estimated GFR (MDRD) 77 L Glucose 109 H Calcium 9.7 Total Bilirubin 0.5 AST 14 ALT 15 Alkaline Phosphatase 55 Total Protein 7.1 Albumin 4.2 Globulin 2.9 Albumin/Globulin Ratio 1.4 Lipase 69 Urine Color DARK YELLOW Urine Clarity CLEAR Urine pH 6.0 Ur Specific [place] 1.025 Urine Protein NEGATIVE Urine Glucose (UA) NEGATIVE Urine Ketones NEGATIVE Urine Occult Blood TRACE-INTA Urine Nitrite NEGATIVE Urine Bilirubin NEGATIVE Urine Urobilinogen 0.2 (NORMAL) Ur Leukocyte Esterase NEGATIVE Ur Microscopic Review NOT INDICATED Urine Culture Comments NOT INDICATED - Rads (name of study) ct abd pelvis Relevant Findings:: Final report received, See rad report PD Medical Decision Making - ED course Complexity details: reviewed results, re-evaluated patient, considered differential, d/w patient, d/w client development consultant ED course: 57-year-old male with history and exam consistent with appendicitis. Confirmed on CT scan. Given IV Zosyn. Discussed the case with Dr. Bauer, general surgery on-call who will take the patient to the OR. This document was made in part using voice recognition software. While efforts are made to proofread this document, sound alike and grammatical errors may occur. Departure - Departure Disposition: ED Transfer to [facility] Clinical Impression: Appendicitis Qualifiers: Appendicitis type: acute appendicitis Acute appendicitis type: with localized peritonitis Appendicitis gangrene presence: unspecified whether gangrene present Appendicitis perforation presence: without perforation Appendicitis abscess presence: without abscess Qualified Code(s): K35.30 - Acute appendicitis with localized peritonitis, without perforation or gangrene Condition: Stable Discharge Date/Time: 07/12/23 16:15
[2023-07-12 13:56] LABS: ALBUMIN 4.2 g/dL (3.2-5.5); ALBUMIN/GLOBULIN RATIO 1.4 (1.0-2.2); BILIRUBIN,TOTAL 0.5 mg/dL (0.2-1.0); CALCIUM 9.7 mg/dL (8.5-10.3); POTASSIUM 3.8 mmol/L (3.5-4.5); TOTAL PROTEIN 7.1 g/dL (6.4-8.9)
[2023-07-12] MEDS ORDERED: iohexoL-300 100 ML VIAL ONE (13:57)
[2023-07-12] MEDS: PIPERACILLIN/TAZOBACTAM 3.375 GM in SODIUM CHLORIDE 0.9% MINIBAG 100 ML IV STA (14:37)
--- NOTE | 2023-07-12 14:37 | CT Report ---
PROCEDURE: Abdomen/Pelvis W INDICATIONS: RLQ abd pain CONTRAST: 100ml omni 300 TECHNIQUE: After the administration of intravenous contrast, a CT scan of the abdomen and pelvis was performed. Images were recorded and evaluated at appropriate window settings. Reformats: coronal and sagittal. F or radiation dose reduction, the following was used: automated exposure control, adjustment of mA and /or kV according to patient size. COMPARISON: CT IVP dated 04/26/[address] of abdomen and pelvis dated 02/23/2022. FINDINGS: Image quality: Diagnostic. Lower chest: Bibasilar dependent atelectasis is seen. Heart size is normal, no pericardial effusion. Median sternotomy wires are seen. Liver: No solid mass. Gallbladder and biliary tree: No radiopaque stones or wall thickening. No biliary dilation. Spleen: No splenomegaly. Pancreas: No pancreatic ductal dilation. Adrenals: No adrenal nodule. Kidneys and ureters: No hydronephrosis. No renal cystic lesion which requires follow up. No solid mas s. Stomach, bowel and peritoneum: There is no bowel obstruction. No gastric or small bowel wall thickeni ng. Enlarged appendix with diffuse appendiceal wall thickening and periappendiceal fat stranding is n oted in right lower quadrant with a suggestion of a 7 x 12 mm appendicolith within proximal appendice al lumen. No extraluminal air to suggest perforation. No abscess collection. No colonic wall thickeni ng. Sigmoid diverticulosis is again seen without CT evidence of acute diverticulitis. Lymph nodes: No central or retroperitoneal adenopathy. Vessels: No infrarenal aortic aneurysm. PELVIS Reproductive organs: Unremarkable. Bladder: No abnormal wall thickening, accounting for underdistention. Pelvic lymph nodes: No pelvic adenopathy by size criteria. Bones: No aggressive osseous abnormality. Other: No significant ventral or inguinal hernia. 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 IMPRESSION: 1. Finding is consistent with uncomplicated acute appendicitis with appendicolith as described above. No bowel obstruction. No abscess collection. No free fluid or free air. 2. Other findings are not significantly changed from prior studies. Reviewed by: Prashant Smart MD on 07/12/2023 2:35 PM PDT Approved by: Prashant Smart MD on 07/12/2023 2:35 PM PDT Station ID: [id number]
[2023-07-12] MEDS ORDERED: MIDAZOLAM 2 MG/2 ML VIAL ONE (15:49)
[2023-07-12] MEDS ORDERED: fentaNYL 100 MCG/2 ML VIAL ONE ×2 (15:49→17:12)
[2023-07-12] MEDS ORDERED: PROPOFOL 200 MG/20 ML VIAL IVP ONE (15:50)
[2023-07-12] MEDS ORDERED: LIDOCAINE-PF 2% 10 ML AMP SUBQ ONE (15:50)
[2023-07-12] MEDS ORDERED: ROCURONIUM 50 MG/5 ML VIAL ONE (15:50)
--- NOTE | 2023-07-12 15:54 | ANESTHESIA ---
Pre-Anesthesia VS, & Labs - Diagnosis acute appendicitis - Procedure laparoscopic appendectomy Vital Signs: Temp Pulse Resp BP Pulse Ox O2 Flow Rate 36.5 C 62 16 110/60 98 07/12/23 15:19 07/12/23 15:19 07/12/23 15:19 07/12/23 15:19 07/12/23 15:19 Height: 5 ft 8 in Weight (kg): 81.647 kg Body Mass Index: 27.3 BMI Classification: Overweight - NPO >8 hours - Lab Results Current Lab Results: Laboratory Tests 07/12/23 13:32: Sodium 138, Potassium 3.8, Chloride 104, Carbon Dioxide 28, Anion Gap 6.0, BUN 9, Creatinine 1.0, Estimated GFR (MDRD) 77 L, Glucose 109 H, Calcium 9.7, Total Bilirubin 0.5, AST 14, ALT 15, Alkaline Phosphatase 55, Total Protein 7.1, Albumin 4.2, Globulin 2.9, Albumin/Globulin Ratio 1.4, Lipase 69 07/12/23 13:32: WBC 10.2, RBC 4.77, Hgb 14.7, Hct 44.4, MCV 93.1, MCH 30.8, MCHC 33.1, RDW 12.3, Plt Count 152, MPV 10.3, Neut # (Auto) 7.4 H, Lymph # (Auto) 2.0, [place] # (Auto) 0.6, Eos # (Auto) 0.2, Baso # (Auto) 0.1, Absolute Nucleated RBC 0.00, Nucleated RBC % 0.0 Fish Bones: 07/12/23 13:32 07/12/23 13:32 Home Medications and Allergies Home Medications: Ambulatory Orders Lisinopril [Zestril] 20 mg PO DAILY 07/12/23 Active Medications Sodium Chloride (Normal Saline 0.9%) 1,000 mls @ 150 mls/hr IV .Q6H40M STA Stop: 07/12/23 20:11 Last Admin: 07/12/23 13:37 Dose: 150 mls/hr Aspirin [Aspirin EC] 81 mg PO DAILY 02/09/19 Atorvastatin [Lipitor] 40 mg PO QPM 02/09/19 carvediloL [Coreg] 6.25 mg PO BID 03/17/19 Lisinopril [Zestril] 20 mg PO DAILY 07/12/23 Allergies/Adverse Reactions: Allergies Allergy/AdvReac Type Severity Reaction Status Date / Time No Known Drug Allergies Allergy Verified 07/12/23 13:19 Anes History & Medical History - Anesthetic History Anesthesia Complications: reports: No previous complications Family history of Anesthesia Complications: Denies Family history of Malignant Hyperthermia: Denies - Medical History Cardiovascular: reports: Hypertension, High cholesterol, Coronary artery disease, Other Pulmonary: reports: None Gastrointestinal: reports: None Urinary: reports: None Neuro: reports: Head injury Musculoskeletal: reports: Chronic back pain Endocrine/Autoimmune: reports: None Blood Disorders: reports: None Skin: reports: None Smoking Status: Never smoker - Surgical History General: reports: Colonoscopy Cardiothoracic: reports: CABG, Coronary stent Orthopedic: reports: Spine surgery, Other Exam General: Alert, Oriented x3, Cooperative Dental: Dentures full Upper, Dentures full Lower Mouth Openin Fingerbreadth Neck Mobility: Normal Mallampati classification: II Thyromental Distance: 4-6 cm Respiratory: Lungs clear, Normal breath sounds, No respiratory distress Cardiovascular: Regular rate (alberto at 53) Neurological: Normal speech Mental/Cognitive Status: Alert/Oriented X3, Normal for patient Cognitive Status: Within normal limits Plan Anesthesia Type: General Consent for Procedure(s) Verified and Reviewed: Yes Code Status: Attempt Resuscitation ASA classification: 3-Severe systemic disease Is this case an emergency?: Yes
--- NOTE | 2023-07-12 15:55 | HISTORY & PHYSICAL EXAMINATION ---
HPI - Admitted From Admitted from: ED - History Obtained From History obtained from: Patient Exam limitations: No limitations - History of Present Illness HPI Comment/Other: 57yoM with 24hrs of RLQ pain that progressively worsened. Associated with anorexia, no n/v. Denies diarrhea or blood in stool. Denies dysuria. Denies prior similar episodes. PMH/PSH - Past Medical History Cardiovascular: positive: Hypertension, High cholesterol, Coronary artery disease, Other Respiratory: positive: None Neuro: positive: Head injury Endocrine/Autoimmune: positive: None GI: positive: None : positive: None HEENT: positive: None Psych: positive: Anxiety Musculoskeletal: positive: Chronic back pain Derm: positive: None MRSA Hx?: No - Past Surgical History General: positive: Colonoscopy, Other (ALIF exposure via lower midline incision ) Ortho: positive: Shoulder arthroplasty, Spine surgery, Other Cardiovascular: positive: CABG, Coronary stent Social & Family Hx - Living Situation Living Arrangement: At home Living Situation: With spouse/s.o. - Social History Does the pt smoke?: No Smoking Status: Never smoker Does the pt drink ETOH?: Yes Does the pt have substance abuse?: Yes - POLST Patient has POLST: No Meds/Allgy - Home Medications Home Medications: Ambulatory Orders Medication Instructions Recorded Confirmed Aspirin [Aspirin EC] 81 mg PO DAILY 02/09/19 07/12/23 Atorvastatin [Lipitor] 40 mg PO QPM 02/09/19 07/12/23 Nitroglycerin [Nitrostat] 0.4 mg SL Q5MIN PRN #100 tablet 02/10/19 07/12/23 carvediloL [Coreg] 6.25 mg PO BID 03/17/19 07/12/23 Lisinopril [Zestril] 20 mg PO DAILY 07/12/23 07/12/23 - Allergies Allergies/Adverse Reactions: Allergies Allergy/AdvReac Type Severity Reaction Status Date / Time No Known Drug Allergies Allergy Verified 07/12/23 13:19 Review of Systems - Gastrointestinal Gastrointestinal: reports: Abdominal pain Exam - Vital Signs Reviewed Vital Signs: Yes Vital Signs: Vital Signs x48h Temp Pulse Resp BP Pulse Ox 07/12/23 15:19 36.5 C 62 16 110/60 98 07/12/23 13:19 36.9 C 64 15 107/56 L 97 07/12/23 13:15 36.9 C 64 15 107/56 L 97 - Physical Exam General Appearance: positive: No acute distress, Alert Eyes Bilateral: positive: Normal inspection, PERRL ENT: positive: ENT inspection nml, Pharynx nml, No signs of dehydration Neck: positive: Nml inspection, Thyroid nml, No JVD, Trachea midline Respiratory: positive: Chest non-tender, No respiratory distress, Breath sounds nml Cardiovascular: positive: Regular rate & rhythm, No murmur, No gallop Peripheral Pulses: positive: 2+ Abdomen: positive: No distention, Tenderness (RLQ, negative rosvings). neg ative: Guarding, Rebound Back: positive: Nml inspection Skin: positive: Color nml, No rash, Warm, Dry Extremities: positive: Non-tender, Full ROM, Nml appearance Neurologic/Psychiatric: positive: Oriented x3, Mood/affect nml Results - Lab Results Lab results reviewed: Yes Fish Bones: 07/12/23 13:32 07/12/23 13:32 Other Lab Results: Lab Results x24hrs 07/12/23 07/12/23 07/12/23 Range/Units 13:32 13:32 13:24 WBC 10.2 (4.8-10.8) x10^3/uL RBC 4.77 (4.70-6.10) 10^6/uL Hgb 14.7 (14.0-18.0) g/dL Hct 44.4 (42.0-52.0) % MCV 93.1 (80.0-94.0) fL MCH 30.8 (27.0-31.0) pg MCHC 33.1 (32.0-36.0) g/dL RDW 12.3 (12.0-15.0) % Plt Count 152 (130-450) 10^3/uL MPV 10.3 (7.4-11.4) fL Neut # (Auto) 7.4 H (1.5-6.6) 10^3/uL Lymph # (Auto) 2.0 (1.5-3.5) 10^3/uL [place] # (Auto) 0.6 (0.0-1.0) 10^3/uL Eos # (Auto) 0.2 (0.0-0.7) 10^3/uL Baso # (Auto) 0.1 (0.0-0.1) 10^3/uL Absolute Nucleated RBC 0.00 x10^3/uL Nucleated RBC % 0.0 /100WBC Sodium 138 (135-145) mmol/L Potassium 3.8 (3.5-4.5) mmol/L Chloride 104 (101-111) mmol/L Carbon Dioxide 28 (21-32) mmol/L Anion Gap 6.0 (6-13) BUN 9 (6-20) mg/dL Creatinine 1.0 (0.6-1.3) mg/dL Estimated GFR (MDRD) 77 L (>89) Glucose 109 H (74-104) mg/dL Calcium 9.7 (8.5-10.3) mg/dL Total Bilirubin 0.5 (0.2-1.0) mg/dL AST 14 (10-42) IU/L ALT 15 (10-60) IU/L Alkaline Phosphatase 55 (42-121) IU/L Total Protein 7.1 (6.4-8.9) g/dL Albumin 4.2 (3.2-5.5) g/dL Globulin 2.9 (2.1-4.2) g/dL Albumin/Globulin Ratio 1.4 (1.0-2.2) Lipase 69 (11-82) U/L Urine Color DARK YELLOW Urine Clarity CLEAR (CLEAR) Urine pH 6.0 (5.0-7.5) PH Ur Specific [place] 1.025 (1.002-1.030) Urine Protein NEGATIVE (NEGATIVE) mg/dL Urine Glucose (UA) NEGATIVE (NEGATIVE) mg/dL Urine Ketones NEGATIVE (NEGATIVE) mg/dL Urine Occult Blood TRACE-INTA (NEGATIVE) Urine Nitrite NEGATIVE (NEGATIVE) Urine Bilirubin NEGATIVE (NEGATIVE) Urine Urobilinogen 0.2 (NORMAL) (NORMAL) E.U./dL Ur Leukocyte Esterase NEGATIVE (NEGATIVE) Ur Microscopic Review NOT INDICATED Urine Culture Comments NOT INDICATED - Diagnostic Imaging Results Diagnostic Imaging Results: positive: Final report reviewed, Read contemporaneously Diagnostic Imaging Results Comments: CT abd/pel - enlarged appendix, thicken appendiceal wall, periappendiceal inflammation, 12mm appendicolith, no free fluid or air to suggest perforation. c/w acute appendicitis. Impression/Plan - Problem List Problem List: 56yoM with acute appendicitis. 24hrs of RLQ pain and anorexia, HD normal, RLQ pain without peritonitis, WBC 10 and normal chemistry, CT with enlarged appendix with dilated wall and surrounding inflammation along with 12mm appendicolith and no evidence of perforation. Patient amenable to surgical intervention after discussion of the nature of diagnosis, indications for surgery (12mm appendicolith precludes antibiotic mgmt), and risks of surgery (pain, bleeding, infection, bowel resection, open surgery, drain, damage to surrounding structures, abscess, need for further procedures). - zosyn and 1L IVF given in ED - EKG in ED - to OR to laparoscopic appendectomy. Hilda Bauer DO FACS General Surgery
[2023-07-12] MEDS ORDERED: BUPIVACAINE 0.25% PF 10 ML VIAL ONE (16:01)
[2023-07-12] MEDS ORDERED: LIDOCAINE 1%-EPI 1:100000 20 ML MDV ONE (16:01)
[2023-07-12] MEDS ORDERED: fentaNYL 100 MCG/2 ML VIAL IVP PRN (16:06)
[2023-07-12] MEDS ORDERED: ATROPINE ABBOJECT 1 MG/10 ML SYRINGE IVP PRN (16:06)
[2023-07-12] MEDS ORDERED: ePHEDrine 50 MG/ML VIAL IVP PRN (16:06)
[2023-07-12] MEDS ORDERED: METOCLOPRAMIDE 10 MG/2 ML VIAL IVP PRN (16:06)
[2023-07-12] MEDS ORDERED: ONDANSETRON 4 MG/2 ML VIAL IVP PRN ×2 (16:06→18:02)
[2023-07-12] MEDS ORDERED: MORPHINE 2 MG/ML CARPUJECT IVP PRN (16:06)
[2023-07-12] MEDS ORDERED: NALOXONE 0.4 MG/ML VIAL IVP PRN (16:06)
[2023-07-12] MEDS: iohexoL-300 100 ML VIAL IVP ONE (16:29)
[2023-07-12] MEDS ORDERED: DEXAMETHASONE 4 MG/ML VIAL ONE (16:38)
[2023-07-12] MEDS ORDERED: ONDANSETRON 4 MG/2 ML VIAL ONE (16:38)
[2023-07-12] MEDS ORDERED: SODIUM CHLORIDE 0.9% 10 ML VIAL IVP ONE (16:41)
[2023-07-12] MEDS ORDERED: ePHEDrine 50 MG/ML VIAL IVP ONE (16:41)
[2023-07-12] MEDS ORDERED: PHENYLEPHRINE HCL 0.5 MG/5 ML AMPULE ONE (16:56)
[2023-07-12] MEDS ORDERED: LACTATED RINGERS 1,000 ML IV SCH (17:00)
[2023-07-12] MEDS ORDERED: SUGAMMADEX 200 MG/2 ML VIAL IVP ONE (17:04)
[2023-07-12] MEDS: BUPIVACAINE 0.25% PF 10 ML VIAL SUBQ ONE (17:15)
[2023-07-12] MEDS: LIDOCAINE 1%-EPI 1:100000 20 ML MDV SUBQ ONE (17:15)
[2023-07-12] MEDS: LACTATED RINGERS 1,000 ML IV ONE ×2 (17:48→18:15)
[2023-07-12] MEDS ORDERED: HYDROmorphone 0.5 MG/0.5 ML SYRINGE ONE (17:56)
[2023-07-12] MEDS: HYDROmorphone 0.5 MG/0.5 ML SYRINGE IVP PRN (17:57)
--- NOTE | 2023-07-12 18:00 | OPERATIVE REPORT ---
Operative Report - General Procedure Date: 07/12/23 Planned Procedure: laparoscopic appendectomy Pre-Op Diagnosis: acute appendicitis Procedure Performed: laparoscopic appendectomy Post Op Diagnosis: acute uncomplicated appendicitis - Procedure Note Primary Surgeon: Hilda Bauer DO Anesthesia Provider: Carlos Mahmood Anesthesia Technique: General ET tube Pathology: human appendix Estimated Blood Loss (mL): 5 Urine Output (mL): 1,000 Indications: 57yoM with 24hrs of RLQ pain and CT-proven acute appendicitis with 12mm fecalith. Findings: acute nonperforated appendicitis. Complications: none - Other Other Information/Narrative: The patient was brought to the operating room with universal protocol observed throughout. He was placed supine on the operating room table with the left arm tucked. A Stover was placed. General anesthesia with endotracheal tube was induced by the anesthesia service. A timeout was performed with all members of the team being in agreement. Local anesthetic of 1% lidocaine with epinephrine mixed with Marcaine plain was injected into the supraumbilical skin. a transverse skin incision was made sharply. Blunt dissection down to the level of the fascia was performed. the umbilical stalk was elevated and the fascia was incised sharply in a vertical orientation and the peritoneal cavity was entered bluntly with a Nuris clamp. A 12 mm balloon trocar was placed. The abdomen was insufflated with CO2 gas to a pressure of 15 mmHg which the patient tolerated well. The laparoscope was inse rted and visual inspection revealed no evidence of injury upon entry. Two additional 5mm trocars were placed in the left lower quadrant and suprapubic positions under direct visualization. Graspers were introduced into the abdomen. The appendix was seen to be inflamed without rupture. There was no free fluid. The appendix was elevated, the mesoappendix was divided with a Ligasure, and the base of the appendix was divided with a 30 mm blue load staple line. The appendix was placed into an Endo Catch bag and extracted through the umbilical port. The staple line was inspected and noted to be intact and hemostatic. The trocars were removed under direct visualization. The umbilical fascia was closed with an 0 Vicryl [id number] suture. The umbilical wound was irrigated with clean normal saline. Hemostasis in the wound was achieved with Bovie electrocautery and all skin incisions were closed with subcuticular 4-0 Monocryl suture. A dressing of Steri-Strips gauze and Tegaderm was applied. The patient was extubated and awoken from general anesthesia. The stover was removed There were no complications. All sponge needle counts were correct. The patient was transferred to the PACU in stable condition. Hilda Bauer DO, FACS General Surgeon
[2023-07-12] MEDS ORDERED: oxyCODONE 5 MG TABLET PO PRN (18:02)
--- NOTE | 2023-07-12 18:11 | ANESTHESIA POST OP EVALUATION ---
Anesthesia Post Eval - Post Anesthesia Eval Vitals: Last Vital Signs Temp 36.8 C 07/12/23 17:48 Pulse 80 07/12/23 18:10 Resp 13 07/12/23 18:10 BP 123/75 07/12/23 18:10 Pulse Ox 97 07/12/23 18:10 O2 Flow Rate CV Function Including HR & BP: Stable Pain Control: Satisfactory Nausea & Vomiting: Negative Mental Status: Baseline Respiratory Status: Airway Patent Hydration Status: Satisfactory Anesthesia Complications: None
[2023-07-12] MEDS: ACETAMINOPHEN 500 MG TABLET PO SCH (20:35)
[2023-07-12] MEDS: IBUPROFEN 800 MG TABLET PO SCH (22:43)
[2023-07-13 04:24] VITALS: BP 106/58; O2SAT 95
--- NOTE | 2023-07-13 09:47 | DISCHARGE SUMMARY ---
"Discharge Summary Admit Date: 07/12/23 Discharge Date: 07/13/23 Discharging Provider: Hilda Bauer Code Status: Attempt Resuscitation Condition at Discharge: Stable Discharge Disposition: 01 Home, Self Care - DIAGNOSES Admission Diagnoses: acute appendicitis Discharge Diagnoses with Status of Each Condition: acute appendicitis - resolved - CONSULTS | PROCEDURES Procedures: laparoscopic appendectomy - HOSPITAL COURSE Hospital Course: The patient was admitted with acute appendicitis and taken to the operating room for an uncomplicated laparoscopic appendectomy in which he was found to have acute nonperforated appendicitis. He was observed overnight and meeting all discharge criteria on the morning of POD1. He was ambulating and voiding at baseline, tolerating PO intake, and pain was controlled on PO medication. He was discharged to home in good condition. - ALLERGIES Allergies/Adverse Reactions: Allergies Allergy/AdvReac Type Severity Reaction Status Date / Time No Known Drug Allergies Allergy Verified 07/12/23 13:19 - MEDICATIONS Home Medications: Ambulatory Orders Medication Instructions Recorded Confirmed Aspirin [Aspirin EC] 81 mg PO DAILY 02/09/19 07/12/23 Atorvastatin [Lipitor] 40 mg PO QPM 02/09/19 07/12/23 Nitroglycerin [Nitrostat] 0.4 mg SL Q5MIN PRN #100 tablet 02/10/19 07/12/23 carvediloL [Coreg] 6.25 mg PO BID 03/17/19 07/12/23 Acetaminophen [Tylenol] 1,000 mg PO Q8HR #30 tablet 07/12/23 Ibuprofen [Motrin] 1 tablet PO Q8H PRN #30 tablet 07/12/23 Lisinopril [Zestril] 20 mg PO DAILY 07/12/23 07/12/23 oxyCODONE [Roxicodone] 5 mg PO Q4-6H PRN #5 tablet 07/12/23 - PHYSICAL EXAM AT DISCHARGE General Appearance: positive: No acute distress Eyes Bilateral: positive: Normal inspection ENT: positive: ENT inspection nml Neck: positive: Nml inspection Respiratory: positive: Chest non-tender, No respiratory distress, Breath sounds nml Cardiovascular: positive: Regular rate & rhythm Peripheral Pulses: positive: 2+ Abdomen: positive: No distention, Tenderness (approrpriate celeste-incisional ttp). negative: Guarding, Rebound Skin: positive: Color nml Extremities: positive: Non-tender, Full ROM, Nml appearance Neurologic/Psychiatric: positive: Oriented x3 - LABS Result Diagrams: 07/12/23 13:32 07/12/23 13:32 - FOLLOW UP Follow Up: 2 wks in general surgery clinic - TIME SPENT Time Spent in Discharge (Minutes): 30"
== END 2023-07-13 07:50 | disposition home or self-care (01) ==
LOC: ED 12:58 → SDS 15:40 → MS2 18:07 → SDS 07-13 07:50
PROVIDERS: ATTEND Surgery
PROC: 0DTJ4ZZ Resection of Appendix, Percutaneous Endoscopic Approach (ICD-10-PCS; principal; 2023-07-12 16:00)
DX: K35.30 Acute appendicitis with localized peritonitis, without perforation or gangrene (principal); I10 Essential (primary) hypertension; I25.10 Atherosclerotic heart disease of native coronary artery without angina pectoris; Z95.1 Presence of aortocoronary bypass graft; Z95.5 Presence of coronary angioplasty implant and graft
CPT/HCPCS: 36415; 44970; 74177; 80053; 81003; 83690; 85025; 93005; 96365; 99285; A9270; J1170; J2372; J7120; Q9967; 81001; 87086